=== PATIENT | female | born 1965 | race African-American/Black ===

== ENCOUNTER 2020-12-29 23:52 | Emergency (ER) | payer OTHER ==
[~2020-12-29] VITALS: Ht 157.5 cm; Wt 76.2 kg
[2020-12-29 23:57] VITALS: BP 175/88
== END 2020-12-30 02:10 | disposition left against medical advice (07) ==
LOC: ER 23:54
DX: R51.9 Headache, unspecified (principal); Z53.21 Procedure and treatment not carried out due to patient leaving prior to being seen by health care provider
CPT/HCPCS: 70450

== ENCOUNTER 2021-01-13 21:06 | Emergency (ER) | payer OTHER ==
[~2021-01-13] VITALS: Ht 157.5 cm; Wt 76.2 kg
[2021-01-13] MEDS ORDERED: ASPirin 325 MG TAB PO ONE (21:30)
[2021-01-13 22:10] LABS: Basophils # (auto) 0 10 ^3/uL (0-0.2); Basophils % (auto) 0.4 % (0.0-2.0); Eosinophils # (auto) 0.2 10 ^3/uL (0-0.8); Eosinophils % (auto) 3.2 % (0.0-7.0); Hematocrit 39.7 % (36.0-46.0); Lymphocytes # (auto) 3.5 10 ^3/uL (0.4-5.4); Lymphocytes % (auto) 54.4 % (10.0-50.0); Mean Corpuscular Hemoglobin 31.4 pg (28.0-32.0); Mean Corpuscular Hgb Conc. 35.2 g/dL (32.0-36.0); Monocytes # (auto) 0.5 10 ^3/uL (0-1.3); Monocytes % (auto) 7.7 % (0.0-12.0); Neutrophils # (auto) 2.2 10 ^3/uL (1.6-8.6); Neutrophils % (auto) 34.3 % (37.0-80.0); Nucleated Red Blood Cells % 0.3 %; Platelet Count (auto) 227 10^3/uL (140-450); Red Blood Cells 4.46 10^6/uL (4.0-5.20); Red Cell Distribution Width 14.2 % (11.8-14.3); White Blood Cell 6.4 10^3/uL (4.4-10.8)
[2021-01-13 22:29] LABS: INR 1.02 (0.9-1.15); Partial Thromboplastin Time 26.1 sec (23.0-31.2)
[2021-01-13 22:36] LABS: Chloride 108 mmol/L (98-107); Potassium 3.5 mmol/L (3.5-5.1); Sodium 141 mmol/L (136-145)
[2021-01-13 22:43] LABS: Alanine Aminotransferase 17 U/L (13-56); Albumin 3.7 g/dL (3.4-5.0); Alkaline Phosphatase 105 U/L (45-117); Anion Gap 7 (5-15); Aspartate Aminotransferase 17 U/L (15-37); BUN/Creatinine Ratio 13.1; Bilirubin, Total 0.3 mg/dL (0.2-1.0); Blood Urea Nitrogen 11 mg/dL (7-18); Calcium 8.6 mg/dL (8.5-10.1); Carbon Dioxide 26 mmol/L (21-32); GFR African American 90 mL/min; GFR Non-African American 75 mL/min; Glucose 101 mg/dL (74-106); Magnesium 2.1 mg/dL (1.6-2.6); Total Protein 7.6 g/dL (6.4-8.2)
[2021-01-13 22:44] LABS: Urine Bacteria NONE SEEN /hpf (None Seen); Urine Blood Negative /uL (Negative); Urine Specific Gravity 1.007 (1.001-1.035); Urine WBC 1 /hpf (0 - 5)
[2021-01-14] VITALS: BP 146/88
== END 2021-01-14 01:31 | disposition left against medical advice (07) ==
LOC: EDBD 21:06 → ER 21:08
DX: I10 Essential (primary) hypertension (principal); J45.909 Unspecified asthma, uncomplicated; Z53.29 Procedure and treatment not carried out because of patient's decision for other reasons
CPT/HCPCS: 36415; 71045; 80053; 81001; 83735; 83880; 84484; 85025; 85610; 85730; 93005

== ENCOUNTER 2022-02-20 10:05 | Emergency (ER) | payer MEDICAID, OTHER ==
[~2022-02-20] VITALS: Ht 154.9 cm; Wt 75.7 kg
[2022-02-20 10:34] VITALS: BP 179/83
[2022-02-20 11:19] LABS: Urine Bacteria NONE SEEN /hpf (None Seen); Urine Blood Negative /uL (Negative); Urine Mucus FEW (None Seen); Urine Specific Gravity 1.025 (1.001-1.035); Urine WBC 5 /hpf (0 - 5)
[2022-02-20] MEDS ORDERED: CIPR-173 PO (11:30)
[2022-02-20] MEDS ORDERED: IBUP800T27 PO (11:30)
== END 2022-02-20 11:38 | disposition home or self-care (01) ==
LOC: ER 10:05
DX: M54.42 Lumbago with sciatica, left side (principal); N30.00 Acute cystitis without hematuria; I10 Essential (primary) hypertension; E78.5 Hyperlipidemia, unspecified; E03.9 Hypothyroidism, unspecified; J45.909 Unspecified asthma, uncomplicated; Z90.89 Acquired absence of other organs; Z79.1 Long term (current) use of non-steroidal anti-inflammatories (NSAID); Z79.2 Long term (current) use of antibiotics
CPT/HCPCS: 72100; 81001; 93005

== ENCOUNTER 2022-12-23 19:30 | Emergency (ER) | payer MEDICAID ==
[~2022-12-23] VITALS: Ht 157.5 cm; Wt 80.0 kg
[~2022-12-23 19:30] MED LIST: CIPR-173 PO; IBUP800T27 PO
[2022-12-23] MEDS: ONDANSETRON ODT 4 MG TAB PO ONE (23:15)
[2022-12-23] MEDS ORDERED: MORPHINE SULFATE 4 MG/ML SYR/VIAL IM ONE (23:15)
[2022-12-23] MEDS ORDERED: ONDA-144 PO (23:19)
[2022-12-23] MEDS ORDERED: HYDR-4902 PO (23:19)
[2022-12-23] MEDS ORDERED: ONDANSETRON HCL 4 MG/2 ML VIAL IV ONE (23:45)
[2022-12-24] MEDS ORDERED: MORPHINE SULFATE 4 MG/ML SYR/VIAL IV ONE (00:15)
[2022-12-24] MEDS: ONDANSETRON ODT 4 MG TAB PO ONE (00:37)
[2022-12-24 00:56] VITALS: BP 143/86
== END 2022-12-24 01:03 | disposition home or self-care (01) ==
LOC: ER 19:30 → EDBD 19:30 → ER 12-24 01:03
DX: S82.431A Displaced oblique fracture of shaft of right fibula, initial encounter for closed fracture (principal); J45.909 Unspecified asthma, uncomplicated; E78.5 Hyperlipidemia, unspecified; I10 Essential (primary) hypertension; Z86.73 Personal history of transient ischemic attack (TIA), and cerebral infarction without residual deficits; W18.00XA Striking against unspecified object with subsequent fall, initial encounter; Y93.89 Activity, other specified; Y92.89 Other specified places as the place of occurrence of the external cause; Y99.8 Other external cause status
CPT/HCPCS: 29515; 73610; 96374; 96375; 99285; J2270; J2405; Q0162